=== PATIENT | female | born 1980 | race Caucasian/White ===

== ENCOUNTER 2021-01-29 07:06 | Day surgery (SDC) | payer OTHER, SELFPAY ==
[~2021-01-29] VITALS: Ht 152.4 cm; Wt 59.0 kg
[2021-01-29] MEDS ORDERED: LIDOCAINE 2% 100 MG/5 ML UJET TP ONE ×2 (11:43→12:05)
[2021-01-29] MEDS ORDERED: fentaNYL citrate 0.05 MG/ML VIAL ONE (11:43)
[2021-01-29] MEDS ORDERED: MIDAZOLAM 5 MG/5 ML VIAL ONE (11:43)
[2021-01-29] MEDS ORDERED: MIDAZOLAM 2 MG/2 ML VIAL IVP ONE (12:05)
== END 2021-01-29 12:52 | disposition home or self-care (01) ==
LOC: MDS 07:06 → MMU 07:07 → MDS 12:52
PROVIDERS: ATTEND Internal Medicine Gastroenterology
DX: K62.89 Other specified diseases of anus and rectum (principal); K21.9 Gastro-esophageal reflux disease without esophagitis; M06.9 Rheumatoid arthritis, unspecified; K64.4 Residual hemorrhoidal skin tags; Z79.899 Other long term (current) drug therapy; Z20.822 Contact with and (suspected) exposure to COVID-19
CPT/HCPCS: 43235; 45330; 81025; 87426; J2250; J3010